=== PATIENT | male | born 1975 | race Caucasian/White ===

== ENCOUNTER 2016-04-15 17:08 | Emergency (ER) | payer MEDICARE, MEDICAID ==
[2016-04-15 20:01] VITALS: BP 124/90
--- NOTE | 2016-04-15 20:44 | UC ---
Ear Complaint HPI - HPI Summary HPI Summary: 41 yo male with left otalgia and URI x 1-2 days no f/c - History of Current Complaint Chief Complaint: UCGeneralIllness Stated Complaint: ST Time Seen by Provider: 04/15/16 19:38 Hx Obtained From: Patient Onset/Duration: Gradual Onset, Lasting Days Severity Initially: Moderate Severity Currently: Moderate Pain Intensity: 4 Pain Scale Used: 0-10 Numeric Associated Signs/Symptoms: Positive: URI Symptoms - Allergies/Home Medications Allergies/Adverse Reactions: Allergies Allergy/AdvReac Type Severity Reaction Status Date / Time No Known Allergies Allergy Verified 04/15/16 20:01 Home Medications: Home Medications Amitriptyline TAB* [Elavil TAB*] 25 mg PO BEDTIME 04/15/16 [History Confirmed ] Dicyclomine CAP* [Bentyl CAP*] 20 mg PO TID PRN 04/15/16 [History Confirmed 10/22] Folic Acid TAB* [Folvite TAB*] 1 mg PO DAILY 04/15/16 [History Confirmed ] Lisinopril [Zestril 10 MG-] 10 mg PO DAILY 04/15/16 [History Confirmed 04/15/16] Loperamide CAP* [Imodium CAP*] 1 tab TID 04/15/16 [History Confirmed 04/15/16] Mesalamine CAP (NF) [Pentasa(NF)] 4 tab PO QID 04/15/16 [History Confirmed 04/15] Methotrexate* 125 mg .SEE ORDER WEEKLY 04/15/16 [History Confirmed 04/15/16] Multiple Vitamins W/ Minerals [Multivitamin Adults] 1 tab PO BID 04/15/16 [ History Confirmed 04/15/16] Potassium Chlor TAB* [Klor Con ER TAB*] 20 meq PO BID 04/15/16 [History Confirmed 04/15/16] PMH/Surg Hx/FS Hx/Imm Hx Previously Healthy: Yes - crohns Cardiovascular History Of: Reports: Cardiac Disorders - PVCs, Hypertension - Surgical History Surgical History: Yes Surgery Procedure, Year, and Place: HERNIA; Cardiac ablation for PVCs 2012. BOWEL RESECTION. ANAL FISTULA REPAIR - Family History Known Family History: Positive: Hypertension, Diabetes - Social History Alcohol Use: None Substance Use Type: None Smoking Status (MU): Heavy Every Day Tobacco Smoker Type: Cigarettes Amount Used/How Often: 1 ppd Length of Time of Smoking/Using Tobacco: 15 years - Immunization History Most Recent Influenza Vaccination: none Review of Systems Constitutional: Negative Skin: Negative Eyes: Negative ENT: Ear Ache, Nasal Discharge Respiratory: Cough Cardiovascular: Negative Gastrointestinal: Negative Genitourinary: Negative Motor: Negative Neurovascular: Negative Musculoskeletal: Negative Neurological: Negative Psychological: Negative All Other Systems Reviewed And Are Negative: Yes Physical Exam Triage Information Reviewed: Yes Appearance: Well-Appearing, No Pain Distress, Well-Nourished Vital Signs: Initial Vital Signs Temp 98.5 F 04/15/16 19:58 Pulse 96 04/15/16 19:58 Resp 18 04/15/16 19:58 BP 124/90 04/15/16 19:58 Pulse Ox 100 04/15/16 19:58 Vital Signs Reviewed: Yes Eyes: Positive: Conjunctiva Clear ENT: Positive: Hearing grossly normal, Nasal congestion, TM bulging - left, TM red - left. Negative: Tonsillar swelling, Tonsillar exudate, Trismus, Muffled/ hoarse voice Dental: Negative: Gross Decay/Caries @, Dental Fracture @ Neck: Positive: Supple, Nontender, No Lymphadenopathy Respiratory: Positive: Lungs clear, Normal breath sounds, No respiratory distress, No accessory muscle use Cardiovascular: Positive: RRR, No Murmur Neurological: Positive: Alert Psychological Exam: Normal Skin Exam: Normal Ear Complaint Course/Dx - Differential Dx/Diagnosis Provider Diagnoses: left otitis media. viral URI Discharge - Discharge Plan Condition: Stable Disposition: HOME Prescriptions: Azithromycin TAB* [Zithromax TAB*] 250 mg PO DAILY #6 tab Patient Education Materials: Otitis Media (ED) Referrals: Wade Deleon PA [Primary Care Provider] - 5 Days (if not better)
== END 2016-04-15 20:47 | disposition home or self-care (01) ==
LOC: UCCORT 17:08
DX: H66.92 Otitis media, unspecified, left ear (principal); J06.9 Acute upper respiratory infection, unspecified; I49.3 Ventricular premature depolarization; I10 Essential (primary) hypertension; F17.210 Nicotine dependence, cigarettes, uncomplicated
CPT/HCPCS: 99212; G0463

== ENCOUNTER 2016-08-26 12:18 | Emergency (ER) | payer MEDICARE, MEDICAID ==
[2016-08-26 12:46] VITALS: BP 152/97
[2016-08-26] MEDS ORDERED: SUMAtriptan SQ* 6 MG/0.5 ML VIAL SUBCUT ONE (13:13)
[2016-08-26] MEDS ORDERED: Metoclopramide TAB* 10 MG PO ONE (13:13)
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
== END 2016-08-26 14:09 | disposition home or self-care (01) ==
LOC: UCCORT 12:18
DX: F41.9 Anxiety disorder, unspecified (principal); F51.02 Adjustment insomnia; G47.9 Sleep disorder, unspecified; K50.90 Crohn's disease, unspecified, without complications; F17.210 Nicotine dependence, cigarettes, uncomplicated
CPT/HCPCS: 96372; 99212; A9270-GY; G0463; J3030

== ENCOUNTER 2017-08-21 20:31 | Emergency (ER) | payer MEDICAID, MEDICARE ==
[2017-08-21] MEDS ORDERED: Metoclopramide IV* 5 MG/ML 2 ML VIAL IV ONE (22:11)
[2017-08-21] MEDS ORDERED: Famotidine IV* 10 MG/ML 2 ML (20 mg) IV ONE (22:11)
[2017-08-21] MEDS ORDERED: NS 0.9% 1000 ML* 1,000 ML IV ONE (22:11)
[2017-08-21] MEDS ORDERED: Morphine INJ* 10 MG/ML 1 ML CARPUJECT IV ONE (22:11)
[2017-08-21 22:37] LABS: ABS Basophils 0.1 10^3/ul (0-0.2); ABS Eosinophils 0.1 10^3/ul (0-0.6); ABS Lymphocytes 2.5 10^3/ul (1.0-4.8); ABS Monocytes 0.9 10^3/ul (0-0.8); ABS Neutrophils 6.5 10^3/ul (1.5-7.7); ABS Nucleated RBC 0 10^3/ul; Eosinophil % 0.7 % (0-6); Hematocrit 38 % (42-52); Hemoglobin 12.5 g/dl (14.0-18.0); Mean Corpuscular HGB Conc 33 g/dl (31-36); Mean Corpuscular Hemoglobin 29 pg (27-31); Mean Corpuscular Volume 88 fL (80-94); Mean Platelet Volume 7.1 um3 (7.4-10.4); Nucleated Red Blood Cells % 0.1; Platelet Count 372 10^3/ul (150-450); Red Blood Count 4.27 10^6/ul (4.00-5.40); Red Cell Distribution Width 16 % (10.5-15); White Blood Count 10.1 10^3/ul (3.5-10.8)
[2017-08-21 22:53] LABS: EGFR Non-African American 110.2 (>60)
[2017-08-21] MEDS ORDERED: Morphine VIAL* 4 MG/ML VIAL (1 ml vial) IV ONE (23:00)
[2017-08-22] MEDS ORDERED: Lidocaine 2% VISCOUS* 15 ML UDC PO ONE (00:06)
[2017-08-22] MEDS ORDERED: Ketorolac INJ* 30 MG/ML 1 ML VIAL IV ONE (00:06)
[2017-08-22] MEDS ORDERED: Al Hydrox/Mg Hydrox/Simet LIQ* 30 ML UDC PO ONE (00:06)
[2017-08-22] MEDS ORDERED: Iohexol 300* (CONTRAST) 10 ML SDV IV ONE (00:54)
[2017-08-22] MEDS ORDERED: HYDROmorphone INJ* 2 MG/ML CARPUJECT SYRINGE IV SLOW PU ONE (01:06)
[2017-08-22 02:16] VITALS: BP 103/62
--- NOTE | 2017-08-22 07:46 | RAD ---
CLINICAL HISTORY: abdominal pain , COMPARISON: June 14, 2008 TECHNIQUE: Multiple contiguous axial CT scans were obtained of the abdomen and pelvis after the administration of intravenous contrast. Coronal and sagittal multiplanar reformations are submitted for review. Oral contrast was not administered. FINDINGS: LUNG BASES: The lung bases are clear. LIVER: The liver is normal in shape, size, contour, and attenuation. BILE DUCTS: There is no intrahepatic or extrahepatic biliary dilatation. GALLBLADDER: The gallbladder is not visualized. Surgical clips are noted in the gallbladder fossa. PANCREAS: The pancreas is normal, without mass or ductal dilatation. SPLEEN: There is small low-attenuation lesion in the spleen suggestive of a cyst versus hemangioma. UPPER GI TRACT: Evaluation of the gastrointestinal tract is limited by incomplete gastric distention. The upper GI tract is unremarkable. SMALL BOWEL AND MESENTERY: The small bowel is normal in contour, course, and caliber. There is no obstruction or dilatation. COLON: The colon is normal in contour, course, caliber. There is no pericolonic inflammatory change. ADRENALS: Normal bilaterally. KIDNEYS: The kidneys are normal in shape, size, contour, and axis. There is no hydronephrosis or nephrolithiasis. BLADDER: The bladder is smooth in contour. PELVIC ORGANS: The prostate gland is normal. The seminal vesicles are symmetric. AORTA: The aorta is normal. IVC: Unremarkable LYMPH NODES: There is no lymphadenopathy by size criteria. ABDOMINAL WALL: There is no evidence for abdominal wall hernia. BONES AND SOFT TISSUES: There are mild diffuse degenerative changes. OTHER: None IMPRESSION: LOW SUSPICION LOW-ATTENUATION LESION OF THE SPLEEN SUGGESTIVE OF CYSTS VERSUS HEMANGIOMA, THOUGH THIS HAS DEVELOPED COMPARED TO THE 2009 EXAMINATION. CONSIDERATION OF FURTHER EVALUATION WITH ULTRASOUND OF THE SPLEEN IN THE NONACUTE SETTING.
--- NOTE | 2017-09-07 11:19 | ED ---
Marisol Cano Gabriel, scribed for Hemal Elizondo MD on 08/21/17 at 2212 . Abdominal Pain/Male - HPI Summary HPI Summary: This patient is a 42 year old M presenting to [facility] with a chief complaint of epigastric and LLQ pain that began 3 days ago that is getting worse. The patient rates the sharp pain 8/10 in severity and states it radiates into his back. Symptoms aggravated by eating. Patient reports n/v/d. 4 episodes of emesis. Patient denies CP. Hx cholecystectomy, pancreatitis, and chrons. - History of Current Complaint Chief Complaint: EDAbdPain Stated Complaint: ABD PAIN Time Seen by Provider: 08/21/17 21:56 Hx Obtained From: Patient Onset/Duration: Lasting Days, Still Present Timing: Constant Severity Initially: Mild Severity Currently: Severe Pain Intensity: 8 Pain Scale Used: 0-10 Numeric Location: Discrete At: LLQ, Epigastric Radiates: Yes Radiates to: Back Character: Sharp Aggravating Factor(s): Food Associated Signs And Symptoms: Positive: Nausea, Vomiting, Diarrhea - Allergies/Home Medications Allergies/Adverse Reactions: Allergies Allergy/AdvReac Type Severity Reaction Status Date / Time No Known Allergies Allergy Verified 08/26/17 06:43 Home Medications: Home Medications Nortriptyline CAP* [Pamelor CAP*] 25 mg PO DAILY 08/21/17 [History Confirmed ] amLODIPine TAB* [Norvasc 5 mg TAB*] 5 mg PO DAILY 08/21/17 [History Confirmed ] PMH/Surg Hx/FS Hx/Imm Hx Endocrine/Hematology History: Reports: Other Endocrine/Hematological Disorders - pancreatitis Cardiovascular History: Reports: Hx Hypertension GI History: Reports: Hx Crohn's Disease, Hx Ulcer - Surgical History Surgery Procedure, Year, and Place: HERNIA; Cardiac ablation for PVCs 2012. BOWEL RESECTION. ANAL FISTULA REPAIR Infectious Disease History: No Infectious Disease History: Reports: Hx Clostridium Difficile - 2011 Denies: History Other Infectious Disease, Traveled Outside the [place] in Last 30 Days - Family History Known Family History: Positive: Hypertension, Diabetes - Social History Alcohol Use: None Substance Use Type: Reports: None Smoking Status (MU): Heavy Every Day Tobacco Smoker Type: Cigarettes Amount Used/How Often: 1 ppd Length of Time of Smoking/Using Tobacco: 15 years Review of Systems Negative: Fever Positive: Abdominal Pain, Vomiting, Diarrhea, Nausea All Other Systems Reviewed And Are Negative: Yes Physical Exam - Summary Physical Exam Summary: Appearance: Well-appearing, no distress, Well-nourished Skin: Warm, color reflects adequate perfusion Head: Normal Head/Face inspection Eyes: Conjunctiva clear ENT: Normal inspection Neck: Supple, no nodes, no JVD. Respiratory: Lungs clear, Normal breath sounds, no respiratory distress Cardio: RRR, No murmur, pulses normal, brisk capillary refill Abdomen: soft, TTP in epigastrium, no guarding, no rebound Bowel sounds: normal Musculoskeletal: Strength Intact/ ROM intact. No calf tenderness. No edema. Neuro: Alert, muscle tone normal, facial symmetry, speech normal, sensory/motor intact Psychological: Normal Triage Information Reviewed: Yes Vital Signs On Initial Exam: Initial Vitals Temp Pulse Resp BP Pulse Ox 98.8 F 109 20 141/88 99 08/21/17 20:46 08/21/17 20:46 08/21/17 20:46 08/21/17 20:46 08/21/17 20:46 Vital Signs Reviewed: Yes Diagnostics - Vital Signs Vital Signs Temp Pulse Resp BP Pulse Ox 08/21/17 20:46 98.8 F 109 20 141/88 99 - Laboratory Lab Results: Lab Results 08/21/17 08/21/17 08/21/17 Range/Units 22:24 22:24 22:24 WBC 10.1 (3.5-10.8) 10^3/ul RBC 4.27 (4.00-5.40) 10^6/ul Hgb 12.5 L (14.0-18.0) g/dl Hct 38 L (42-52) % MCV 88 (80-94) fL MCH 29 (27-31) pg MCHC 33 (31-36) g/dl RDW 16 H (10.5-15) % Plt Count 372 (150-450) 10^3/ul MPV 7.1 L (7.4-10.4) um3 Neut % (Auto) 64.8 (38-83) % Lymph % (Auto) 25.0 (25-47) % [place] % (Auto) 8.9 H (0-7) % Eos % (Auto) 0.7 (0-6) % Baso % (Auto) 0.6 (0-2) % Absolute Neuts (auto) 6.5 (1.5-7.7) 10^3/ul Absolute Lymphs (auto) 2.5 (1.0-4.8) 10^3/ul Absolute Monos (auto) 0.9 H (0-0.8) 10^3/ul Absolute Eos (auto) 0.1 (0-0.6) 10^3/ul Absolute Basos (auto) 0.1 (0-0.2) 10^3/ul Absolute Nucleated RBC 0 10^3/ul Nucleated RBC % 0.1 Sodium 136 (135-145) mmol/L Potassium 4.0 (3.5-5.0) mmol/L Chloride 102 (101-111) mmol/L Carbon Dioxide 25 (22-32) mmol/L Anion Gap 9 (2-11) mmol/L BUN 9 (6-24) mg/dL Creatinine 0.78 (0.67-1.17) mg/dL Est GFR ( Amer) 141.8 (>60) Est GFR (Non-Af Amer) 110.2 (>60) BUN/Creatinine Ratio 11.5 (8-20) Glucose 96 (70-100) mg/dL Lactic Acid 1.1 (0.5-2.0) mmol/L Calcium 9.2 (8.6-10.3) mg/dL Total Bilirubin 0.20 (0.2-1.0) mg/dL AST 22 (13-39) U/L ALT 29 (7-52) U/L Alkaline Phosphatase 60 (34-104) U/L Total Protein 7.1 (6.4-8.9) g/dL Albumin 4.2 (3.2-5.2) g/dL Globulin 2.9 (2-4) g/dL Albumin/Globulin Ratio 1.4 (1-3) Lipase 23 (11.0-82.0) U/L Result Diagrams: 08/21/17 22:24 08/21/17 22:24 Lab Statement: Any lab studies that have been ordered have been reviewed, and results considered in the medical decision making process. - CT CT ABD/Pelvis CT Interpretation Completed By: Radiologist - No definite acute pathology. New small splenic hypodensity is questionably a cyst, can be further evaluated with non-emergent US ED physician has reviewed this radiology report. Re-Evaluation - Re-Evaluation First Eval Re-Evaluation Time: 01:00 Change: Unchanged Comment: Pt continues to have upper abdominal discomfort. will give second dose IV analgesia and antacids. Will obtain CT abd/pelv. Second Eval Re-Evaluation Time: 02:03 Change: Improved Comment: Pt pain improved with IV analgesia. Pt resting comfortably in bed. Pt tolerating po. Pt symptoms most consistent with gastritis. PLan for symptomatic tx with GI f/u. Abdominal Pain Fem Course/Dx - Diagnoses Differential Diagnosis/HQI/PQRI: Bowel Obstruction, Constipation, Diverticulitis , Gall Bladder Disease, Ischemic Bowel, Pancreatitis, Peptic Ulcer Disease Provider Diagnoses: Abdominal pain Discharge - Sign-Out/Discharge Documenting (check all that apply): Patient Departure - Discharge Plan Condition: Improved Disposition: HOME Prescriptions: traMADol TAB* [Ultram*] 50 mg PO Q6HR PRN #10 tab MDD 200 mg PRN Reason: Pain Patient Education Materials: Acute Abdominal Pain (ED) Referrals: Wade Deleon PA [Primary Care Provider] - 2 Days - Billing Disposition and Condition Condition: IMPROVED Disposition: Home The documentation as recorded by the Marisol avila Gabriel accurately reflects the service I personally performed and the decisions made by , Hemal Elizondo MD.
== END 2017-08-22 02:15 | disposition home or self-care (01) ==
LOC: ED 20:31
DX: R10.32 Left lower quadrant pain (principal); R19.7 Diarrhea, unspecified; F17.210 Nicotine dependence, cigarettes, uncomplicated; R11.2 Nausea with vomiting, unspecified
CPT/HCPCS: 36415; 74177; 80053; 83605; 83690; 85025; 96361; 96374; 96375; 99283; A9270-GY; J1170; J1885; J2270; J2765; Q9967

== ENCOUNTER 2017-08-23 01:36 | Emergency (ER) | payer MEDICARE ==
[2017-08-23] MEDS ORDERED: Promethazine TAB* 25 MG ONE (02:48)
[2017-08-23] MEDS ORDERED: Promethazine TAB* 25 MG PO ONE (02:55)
[2017-08-23] MEDS ORDERED: methylPREDNISolone 125 MG* 2 ML VIAL IV ONE (03:03)
[2017-08-23] MEDS ORDERED: NS 0.9% 1000 ML* 1,000 ML IV ONE (03:03)
[2017-08-23] MEDS ORDERED: HYDROmorphone INJ* 2 MG/ML CARPUJECT SYRINGE IV SLOW PU ONE (03:04)
[2017-08-23] MEDS ORDERED: metroNIDAZOLE TAB* 250 MG PO ONE (03:04)
[2017-08-23] MEDS ORDERED: Ciprofloxacin TAB* 500 MG PO ONE (03:04)
[2017-08-23 03:30] LABS: ABS Basophils 0.1 10^3/ul (0-0.2); ABS Eosinophils 0 10^3/ul (0-0.6); ABS Lymphocytes 2.5 10^3/ul (1.0-4.8); ABS Monocytes 0.7 10^3/ul (0-0.8); ABS Neutrophils 6.1 10^3/ul (1.5-7.7); ABS Nucleated RBC 0 10^3/ul; Eosinophil % 0.5 % (0-6); Hematocrit 35 % (42-52); Lymphocyte % 26.5 % (25-47); Mean Corpuscular HGB Conc 34 g/dl (31-36); Mean Corpuscular Hemoglobin 30 pg (27-31); Mean Corpuscular Volume 88 fL (80-94); Mean Platelet Volume 6.8 um3 (7.4-10.4); Nucleated Red Blood Cells % 0; Platelet Count 386 10^3/ul (150-450); Red Blood Count 3.99 10^6/ul (4.00-5.40); Red Cell Distribution Width 16 % (10.5-15); White Blood Count 9.5 10^3/ul (3.5-10.8)
[2017-08-23 03:43] LABS: EGFR Non-African American 108.6 (>60)
[2017-08-23 04:38] VITALS: BP 144/78
--- NOTE | 2017-08-23 05:09 | ED ---
Marisol Cano Gabriel, scribed for Zafar Alejo MD on 08/23/17 at 0208 . Abdominal Pain/Male - HPI Summary HPI Summary: This patient is a 42 year old M [facility] c/o ABD pain in the LLQ that continues to increase. The ABD pain began 08-18-17 he has chrons and has attempted to do a liquid diet but it has not worked. The patient rates the waxing and waning pain 8/10 in severity. Patient reports diarrhea, chills, and vomiting. Patient denies blood in the stool. Pt stated that he was here last night for abd. Pt sent home with tramadol and pt states that it feels like it is getting worse - History of Current Complaint Chief Complaint: EDAbdPain Stated Complaint: ABD PAIN Hx Obtained From: Patient Onset/Duration: Still Present Timing: Constant Severity Initially: Moderate Severity Currently: Moderate Pain Intensity: 8 Pain Scale Used: 0-10 Numeric Location: Discrete At: LLQ Radiates: No Associated Signs And Symptoms: Positive: Vomiting, Diarrhea - Allergies/Home Medications Allergies/Adverse Reactions: Allergies Allergy/AdvReac Type Severity Reaction Status Date / Time No Known Allergies Allergy Verified 08/23/17 01:45 Home Medications: Home Medications Varenicline Tartrate [Chantix] 1 mg PO BID 08/23/17 [History Confirmed 08/23/17] PMH/Surg Hx/FS Hx/Imm Hx Endocrine/Hematology History: Denies: Hx Diabetes Cardiovascular History: Reports: Hx Hypertension Denies: Hx Auto Implanted Cardiovert Defib, Hx Cardiac Arrest GI History: Reports: Hx Crohn's Disease, Hx Ulcer History: Denies: Hx Renal Disease Psychiatric History: Denies: Hx Panic Disorder, Hx Post Traumatic Stress Disorder - Surgical History Surgery Procedure, Year, and Place: HERNIA; Cardiac ablation for PVCs 2012. BOWEL RESECTION. ANAL FISTULA REPAIR Infectious Disease History: No Infectious Disease History: Reports: Hx Clostridium Difficile - 2011 Denies: History Other Infectious Disease, Traveled Outside the [place] in Last 30 Days - Family History Known Family History: Positive: Hypertension, Diabetes - Social History Alcohol Use: None Substance Use Type: Reports: None Smoking Status (MU): Heavy Every Day Tobacco Smoker Type: Cigarettes Amount Used/How Often: 1 ppd Length of Time of Smoking/Using Tobacco: 15 years Review of Systems Positive: Chills Gastrointestinal: Negative - blood in the stool Positive: Abdominal Pain, Vomiting, Nausea All Other Systems Reviewed And Are Negative: Yes Physical Exam - Summary Physical Exam Summary: Appearance: Well appearing, no pain distress Skin: warm, dry, reflects adequate perfusion Head/face: normal Eyes: EOMI, RADHA ENT: normal Neck: supple, non-tender Respiratory: CTA, breath sounds present Cardiovascular: RRR, pulses symmetrical Abdomen: mild LUQ tenderness, soft Bowel Sounds: increased Musculoskeletal: normal, strength/ROM intact Neuro: normal, sensory motor intact, A&Ox3 Triage Information Reviewed: Yes Vital Signs On Initial Exam: Initial Vitals Temp Pulse Resp BP Pulse Ox 98.1 F 93 20 147/102 100 08/23/17 01:42 08/23/17 01:42 08/23/17 01:42 08/23/17 01:42 08/23/17 01:42 Vital Signs Reviewed: Yes Diagnostics - Vital Signs Vital Signs Temp Pulse Resp BP Pulse Ox 08/23/17 01:42 98.1 F 93 20 147/102 100 - Laboratory Lab Results: Lab Results 08/23/17 08/23/17 Range/Units 03:13 03:13 WBC 9.5 (3.5-10.8) 10^3/ul RBC 3.99 L (4.00-5.40) 10^6/ul Hgb 12.0 L (14.0-18.0) g/dl Hct 35 L (42-52) % MCV 88 (80-94) fL MCH 30 (27-31) pg MCHC 34 (31-36) g/dl RDW 16 H (10.5-15) % Plt Count 386 (150-450) 10^3/ul MPV 6.8 L (7.4-10.4) um3 Neut % (Auto) 64.6 (38-83) % Lymph % (Auto) 26.5 (25-47) % Sutton % (Auto) 7.8 H (0-7) % Eos % (Auto) 0.5 (0-6) % Baso % (Auto) 0.6 (0-2) % Absolute Neuts (auto) 6.1 (1.5-7.7) 10^3/ul Absolute Lymphs (auto) 2.5 (1.0-4.8) 10^3/ul Absolute Monos (auto) 0.7 (0-0.8) 10^3/ul Absolute Eos (auto) 0 (0-0.6) 10^3/ul Absolute Basos (auto) 0.1 (0-0.2) 10^3/ul Absolute Nucleated RBC 0 10^3/ul Nucleated RBC % 0 Sodium 137 (135-145) mmol/L Potassium 3.7 (3.5-5.0) mmol/L Chloride 102 (101-111) mmol/L Carbon Dioxide 27 (22-32) mmol/L Anion Gap 8 (2-11) mmol/L BUN 9 (6-24) mg/dL Creatinine 0.79 (0.67-1.17) mg/dL Est GFR ( Amer) 139.7 (>60) Est GFR (Non-Af Amer) 108.6 (>60) BUN/Creatinine Ratio 11.4 (8-20) Glucose 102 H (70-100) mg/dL Calcium 9.4 (8.6-10.3) mg/dL Total Bilirubin 0.30 (0.2-1.0) mg/dL AST 19 (13-39) U/L ALT 27 (7-52) U/L Alkaline Phosphatase 58 (34-104) U/L Total Protein 6.8 (6.4-8.9) g/dL Albumin 4.1 (3.2-5.2) g/dL Globulin 2.7 (2-4) g/dL Albumin/Globulin Ratio 1.5 (1-3) Lipase 23 (11.0-82.0) U/L Result Diagrams: 08/23/17 03:13 08/23/17 03:13 Lab Statement: Any lab studies that have been ordered have been reviewed, and results considered in the medical decision making process. Abdominal Pain Fem Course/Dx - Course Course Of Treatment: Patient with history of Crohn's disease without any significant inflammatory markers or fever. Diarrhea without blood in the stool. On no medications for this. 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 Started patient on Cipro, Flagyl and gave dose of IV steroid. Patient has not followed up with GI in some time. Recommended local GI to him. Will continue Cipro, Flagyl, budesonide, Pentasa. Return precautions provided. - Diagnoses Differential Diagnosis/HQI/PQRI: Other - Crohn's flare, gastroenteritis, opiate withdrawal Provider Diagnoses: Exacerbation of Crohn's disease Discharge - Sign-Out/Discharge Documenting (check all that apply): Discharge/Admit/Transfer - Discharge Plan Condition: Improved Disposition: HOME Prescriptions: Budesonide [Entocort EC] 9 mg PO QAM #90 capdr...er Ciprofloxacin HCl [Cipro] 500 mg PO BID #14 tablet Mesalamine [Delzicol] 800 mg PO TID #90 cap.drtab. metroNIDAZOLE [Flagyl 500 MG TAB] 500 mg PO TID #21 tab Promethazine TAB* [Phenergan Tab*] 25 mg PO Q6H PRN #20 tab PRN Reason: Nausea Patient Education Materials: Crohn Disease (ED) Referrals: Wade Deleon PA [Primary Care Provider] - Lux Healy MD [Medical Doctor] - Additional Instructions: Call and the morning to follow-up with your doctor and also ux ui designer. Medications have been prescribed here pharmacy. [place] diet as tolerated. Continue antidiarrheals as needed. Avoid anti-inflammatory medications. Return with fever, increased pain, worse or other concerns. - Billing Disposition and Condition Condition: IMPROVED Disposition: Home The documentation as recorded by the Marisol avila Gabriel accurately reflects the service I personally performed and the decisions made by , Zafar Alejo MD.
== END 2017-08-23 04:36 | disposition home or self-care (01) ==
LOC: ED 01:36
DX: K50.90 Crohn's disease, unspecified, without complications (principal); I10 Essential (primary) hypertension; F17.210 Nicotine dependence, cigarettes, uncomplicated
CPT/HCPCS: 36415; 80053; 83690; 85025; 96360; 96374; 96375; 99283; A9270-GY; J1170; J2930

== ENCOUNTER 2017-08-26 06:36 | Emergency (ER) | payer MEDICARE ==
[2017-08-26] MEDS ORDERED: NS 0.9% 1000 ML* 1,000 ML IV ONE (07:28)
[2017-08-26] MEDS ORDERED: Ketorolac INJ* 30 MG/ML 1 ML VIAL IV ONE (07:28)
[2017-08-26] MEDS ORDERED: Metoclopramide IV* 5 MG/ML 2 ML VIAL IV ONE (07:28)
[2017-08-26 08:04] LABS: ABS Basophils 0.1 10^3/ul (0-0.2); ABS Eosinophils 0 10^3/ul (0-0.6); ABS Lymphocytes 3.7 10^3/ul (1.0-4.8); ABS Monocytes 1.1 10^3/ul (0-0.8); ABS Neutrophils 10.2 10^3/ul (1.5-7.7); ABS Nucleated RBC 0 10^3/ul; Eosinophil % 0.2 % (0-6); Hematocrit 38 % (42-52); Hemoglobin 12.9 g/dl (14.0-18.0); Lymphocyte % 24.3 % (25-47); Mean Corpuscular HGB Conc 34 g/dl (31-36); Mean Corpuscular Hemoglobin 30 pg (27-31); Mean Corpuscular Volume 87 fL (80-94); Mean Platelet Volume 6.8 um3 (7.4-10.4); Nucleated Red Blood Cells % 0; Platelet Count 420 10^3/ul (150-450); Red Blood Count 4.34 10^6/ul (4.00-5.40); Red Cell Distribution Width 16 % (10.5-15); White Blood Count 15.1 10^3/ul (3.5-10.8)
[2017-08-26] MEDS ORDERED: fentaNYL* 50 MCG/ML 2 ML VIAL (100 MCG VIAL) IV ONE (08:09)
[2017-08-26] MEDS ORDERED: Promethazine INJ(RESTRICTED)* 25 MG/ML 1 ML VIAL IV ONE (08:09)
[2017-08-26 08:30] LABS: EGFR Non-African American 88.9 (>60)
[2017-08-26] MEDS ORDERED: oxyCODONE/Acetamin 5/325 MG* TAB PO ONE (11:10)
[2017-08-26] MEDS ORDERED: Ondansetron ODT TAB* 4 MG SL ONE ×2 (11:15→14:28)
[2017-08-26 14:01] LABS: Urine Appearance Clear; Urine Blood 3+ (Negative); Urine Color Straw; Urine Ketones Negative (Negative); Urine Protein Negative (Negative); Urine Red Blood Cell Absent (Absent); Urine Urobilinogen Negative (Negative); Urine White Blood Cell Absent (Absent)
[2017-08-26] MEDS ORDERED: Ketorolac INJ* 30 MG/ML 1 ML VIAL IV PUSH ONE (14:28)
[2017-08-26 14:50] VITALS: BP 125/68
--- NOTE | 2017-08-26 18:50 | ED ---
Marisol Cano Gabriel, scribed for Jarod Garcia MD on 08/26/17 at 0729 . Abdominal Pain/Male - HPI Summary HPI Summary: This patient is a 42 year old M presenting to [facility] with a chief complaint of ABD pain due to a Crohns flare up. The pt states the pain is similar to previous flair up but slightly worse. The patient rates the pain 8/10 in severity. Patient reports constant green diarrhea, nausea, and vomiting. States the vomit occasionally has black flecks in it. This is the patients third visit to the emergency room since 08-21-17 and states the pain has been getting worse. Pt is not on any medication for his chrons due to adverse reactions due to do previous medications. Still on flagyl and entocort for 3-4 days. Hx anal fistula, polyps, and C-diff. No colon resection - History of Current Complaint Chief Complaint: EDAbdPain Stated Complaint: ABD PAIN, VOMITING Time Seen by Provider: 08/26/17 07:17 Hx Obtained From: Patient Onset/Duration: Lasting Days - 10, Still Present Timing: Constant Severity Initially: Moderate Severity Currently: Severe Pain Intensity: 8 Pain Scale Used: 0-10 Numeric Location: Diffuse Radiates: No Associated Signs And Symptoms: Positive: Nausea, Vomiting, Diarrhea - Allergies/Home Medications Allergies/Adverse Reactions: Allergies Allergy/AdvReac Type Severity Reaction Status Date / Time No Known Allergies Allergy Verified 08/26/17 06:43 Home Medications: Home Medications Budesonide CAP(NF) 9 mg PO QAM 08/26/17 [History Confirmed 08/26/17] Ciprofloxacin TAB* [Cipro 500 MG TAB*] 500 mg PO BID 08/26/17 [History Confirmed 08/26/17] Escitalopram (NF) [Lexapro 20 mg (NF)] 20 mg PO DAILY 08/26/17 [History Confirmed 08/26/17] Lisinopril TAB* [Prinivil TAB*] 30 mg PO DAILY 08/26/17 [History Confirmed 08/26] Mesalamine CAP (NF) [Delzicol (NF)] 800 mg PO TID 08/26/17 [History Confirmed ] Omeprazole CAP* [Prilosec CAP* 20 MG] 40 mg PO BID 08/26/17 [History Confirmed 08/26/17] Varenicline (NF) [Chantix 1 MG TAB (NF)] 1 mg PO BID 08/26/17 [History Confirmed 08/26/17] metroNIDAZOLE TAB* [Flagyl 250 mg TAB*] 500 mg PO TID 08/26/17 [History Confirmed 08/26/17] PMH/Surg Hx/FS Hx/Imm Hx Endocrine/Hematology History: Denies: Hx Diabetes Cardiovascular History: Reports: Hx Hypertension Denies: Hx Auto Implanted Cardiovert Defib, Hx Cardiac Arrest GI History: Reports: Hx Crohn's Disease, Hx Ulcer History: Denies: Hx Renal Disease Psychiatric History: Denies: Hx Panic Disorder, Hx Post Traumatic Stress Disorder - Surgical History Surgery Procedure, Year, and Place: HERNIA; Cardiac ablation for PVCs 2012. BOWEL RESECTION. ANAL FISTULA REPAIR Infectious Disease History: No Infectious Disease History: Reports: Hx Clostridium Difficile - 2011 Denies: History Other Infectious Disease, Traveled Outside the [place] in Last 30 Days - Family History Known Family History: Positive: Hypertension, Diabetes - Social History Alcohol Use: None Substance Use Type: Reports: None Smoking Status (MU): Heavy Every Day Tobacco Smoker Type: Cigarettes Amount Used/How Often: 1 ppd Length of Time of Smoking/Using Tobacco: 15 years Review of Systems Negative: Fever Positive: Abdominal Pain, Vomiting, Diarrhea, Nausea All Other Systems Reviewed And Are Negative: Yes Physical Exam - Summary Physical Exam Summary: GENERAL: Patient is a well developed and nourished M who is lying comfortable in the stretcher. Patient is not in any acute respiratory distress. HEAD AND FACE: Normocephalic EYES: PERRLA, EOMI x 2. EARS: Hearing grossly intact. MOUTH: Oropharynx within normal limits. NECK: Supple, trachea is midline, no adenopathy, no JVD, no carotid bruit. CHEST: Symmetric, no tenderness at palpation LUNGS: Clear to auscultation bilaterally. No wheezing or crackles. CVS: Regular rate and rhythm, S1 and S2 present, no murmurs or gallops appreciated. ABDOMEN: Soft. Diffusely TTP that is worse on the left. No rebound EXTREMITIES: Full ROM in all major joints, no edema, no cyanosis or clubbing. NEURO: Alert and oriented x 3. No acute neurological deficits. Speech is normal and follows commands. SKIN: Dry and warm Triage Information Reviewed: Yes Vital Signs On Initial Exam: Initial Vitals Temp Pulse Resp BP Pulse Ox 97.8 F 108 16 138/102 99 08/26/17 06:39 08/26/17 06:39 08/26/17 06:39 08/26/17 06:39 08/26/17 06:39 Vital Signs Reviewed: Yes Diagnostics - Vital Signs Vital Signs Temp Pulse Resp BP Pulse Ox 08/26/17 06:39 97.8 F 108 16 138/102 99 - Laboratory Lab Results: Lab Results 08/26/17 08/26/17 08/26/17 Range/Units 07:55 07:55 07:55 WBC 15.1 H (3.5-10.8) 10^3/ul RBC 4.34 (4.00-5.40) 10^6/ul Hgb 12.9 L (14.0-18.0) g/dl Hct 38 L (42-52) % MCV 87 (80-94) fL MCH 30 (27-31) pg MCHC 34 (31-36) g/dl RDW 16 H (10.5-15) % Plt Count 420 (150-450) 10^3/ul MPV 6.8 L (7.4-10.4) um3 Neut % (Auto) 67.6 (38-83) % Lymph % (Auto) 24.3 L (25-47) % [place] % (Auto) 7.3 H (0-7) % Eos % (Auto) 0.2 (0-6) % Baso % (Auto) 0.6 (0-2) % Absolute Neuts (auto) 10.2 H (1.5-7.7) 10^3/ul Absolute Lymphs (auto) 3.7 (1.0-4.8) 10^3/ul Absolute Monos (auto) 1.1 H (0-0.8) 10^3/ul Absolute Eos (auto) 0 (0-0.6) 10^3/ul Absolute Basos (auto) 0.1 (0-0.2) 10^3/ul Absolute Nucleated RBC 0 10^3/ul Nucleated RBC % 0 Sodium 137 (135-145) mmol/L Potassium 3.5 (3.5-5.0) mmol/L Chloride 103 (101-111) mmol/L Carbon Dioxide 24 (22-32) mmol/L Anion Gap 10 (2-11) mmol/L BUN 14 (6-24) mg/dL Creatinine 0.94 (0.67-1.17) mg/dL Est GFR ( Amer) 107.6 (>60) Est GFR (Non-Af Amer) 88.9 (>60) BUN/Creatinine Ratio 14.9 (8-20) Glucose 82 (70-100) mg/dL Lactic Acid 0.7 (0.5-2.0) mmol/L Calcium 9.4 (8.6-10.3) mg/dL Magnesium 2.2 (1.9-2.7) mg/dL Total Bilirubin 0.30 (0.2-1.0) mg/dL AST 19 (13-39) U/L ALT 30 (7-52) U/L Alkaline Phosphatase 62 (34-104) U/L C-Reactive Protein 10.79 H (<8.01) mg/L Total Protein 7.0 (6.4-8.9) g/dL Albumin 4.2 (3.2-5.2) g/dL Globulin 2.8 (2-4) g/dL Albumin/Globulin Ratio 1.5 (1-3) Lipase 30 (11.0-82.0) U/L Urine Color Urine Appearance Urine pH (5-9) Ur Specific [place] (1.010-1.030) Urine Protein (Negative) Urine Ketones (Negative) Urine Blood (Negative) Urine Nitrate (Negative) Urine Bilirubin (Negative) Urine Urobilinogen (Negative) Ur Leukocyte Esterase (Negative) Urine WBC (Auto) (Absent) Urine RBC (Auto) (Absent) Urine Bacteria (Absent) Urine Glucose (Negative) 08/26/17 Range/Units 13:15 WBC (3.5-10.8) 10^3/ul RBC (4.00-5.40) 10^6/ul Hgb (14.0-18.0) g/dl Hct (42-52) % MCV (80-94) fL MCH (27-31) pg MCHC (31-36) g/dl RDW (10.5-15) % Plt Count (150-450) 10^3/ul MPV (7.4-10.4) um3 Neut % (Auto) (38-83) % Lymph % (Auto) (25-47) % [place] % (Auto) (0-7) % Eos % (Auto) (0-6) % Baso % (Auto) (0-2) % Absolute Neuts (auto) (1.5-7.7) 10^3/ul Absolute Lymphs (auto) (1.0-4.8) 10^3/ul Absolute Monos (auto) (0-0.8) 10^3/ul Absolute Eos (auto) (0-0.6) 10^3/ul Absolute Basos (auto) (0-0.2) 10^3/ul Absolute Nucleated RBC 10^3/ul Nucleated RBC % Sodium (135-145) mmol/L Potassium (3.5-5.0) mmol/L Chloride (101-111) mmol/L Carbon Dioxide (22-32) mmol/L Anion Gap (2-11) mmol/L BUN (6-24) mg/dL Creatinine (0.67-1.17) mg/dL Est GFR ( Amer) (>60) Est GFR (Non-Af Amer) (>60) BUN/Creatinine Ratio (8-20) Glucose (70-100) mg/dL Lactic Acid (0.5-2.0) mmol/L Calcium (8.6-10.3) mg/dL Magnesium (1.9-2.7) mg/dL Total Bilirubin (0.2-1.0) mg/dL AST (13-39) U/L ALT (7-52) U/L Alkaline Phosphatase (34-104) U/L C-Reactive Protein (<8.01) mg/L Total Protein (6.4-8.9) g/dL Albumin (3.2-5.2) g/dL Globulin (2-4) g/dL Albumin/Globulin Ratio (1-3) Lipase (11.0-82.0) U/L Urine Color Straw Urine Appearance Clear Urine pH 7.0 (5-9) Ur Specific [place] 1.000 L (1.010-1.030) Urine Protein Negative (Negative) Urine Ketones Negative (Negative) Urine Blood 3+ A (Negative) Urine Nitrate Negative (Negative) Urine Bilirubin Negative (Negative) Urine Urobilinogen Negative (Negative) Ur Leukocyte Esterase Negative (Negative) Urine WBC (Auto) Absent (Absent) Urine RBC (Auto) Absent (Absent) Urine Bacteria Absent (Absent) Urine Glucose Negative (Negative) Result Diagrams: 08/26/17 07:55 08/26/17 07:55 Lab Statement: Any lab studies that have been ordered have been reviewed, and results considered in the medical decision making process. Re-Evaluation - Re-Evaluation First Eval Re-Evaluation Time: 10:20 Change: Unchanged Comment: I discussed test results and discharge with the patient. He is requesting to be transferred and to speak to the fitness centre manager. Second Eval Re-Evaluation Time: 10:25 Change: Unchanged Comment: The pt is requesting to see another physician and does not want to sign out AMA. Third Eval Re-Evaluation Time: 09:45 Change: Unchanged Comment: I reviewed the patients CT ABD/Pelvis from 08-22-. Abdominal Pain Fem Course/Dx - Course Course Of Treatment: 42-year-old male with a history of Crohn's disease and was seen here 8 times within the past week for abdominal pain associated with nausea , vomiting, diarrhea. She reports that he was recently sent home on steroids, Cipro, Flagyl. I did review the CAT scan that was done 4 days ago which shows no acute etiology. Patient's blood work is unremarkable the exception of leukocytosis which is most likely induced by steroids. He was given IV fluids, antinausea and pain medicine and was told he needed to follow up with GI. She became upset and said he thinks he needs to be admitted. However, I informed patient don't see the need for admission as he has not had 1 episode of nausea, vomiting or diarrhea while being observed here in the emergency room as vital signs are stable. We were able to get the patient a follow-up appointment with the intensive clinic upstairs for today. Patient hemodynamically stable upon discharge - Diagnoses Provider Diagnoses: Chronic abdominal pain - Provider Notifications Discussed Care Of Patient With: Lux Healy Time Discussed With Above Provider: 10:55 Instructed by Provider To: Other - We discussed patient care with Dr. Belle office and they stated he has been released from their care. They will not see the patient again due to their history of care with him. Discharge - Sign-Out/Discharge Documenting (check all that apply): Discharge/Admit/Transfer - Discharge Plan Condition: Stable Disposition: HOME Patient Education Materials: Chronic Abdominal Pain (ED) Referrals: Care [facility] [Outside] Wade Deleon PA [Primary Care Provider] - Additional Instructions: RETURN TO THE EMERGENCY DEPARTMENT FOR CHANGING OR WORSENING SYMPTOMS - Billing Disposition and Condition Condition: STABLE Disposition: Home The documentation as recorded by the Marisol avila Gabriel accurately reflects the service I personally performed and the decisions made by me, Jarod Garcia MD.
== END 2017-08-26 14:59 | disposition home or self-care (01) ==
LOC: ED 06:36
DX: R10.9 Unspecified abdominal pain (principal); G89.29 Other chronic pain; R19.7 Diarrhea, unspecified; R11.2 Nausea with vomiting, unspecified; F17.210 Nicotine dependence, cigarettes, uncomplicated; K50.118 Crohn's disease of large intestine with other complication; F32.9 Major depressive disorder, single episode, unspecified; R31.29 Other microscopic hematuria; Z79.899 Other long term (current) drug therapy
CPT/HCPCS: 36415; 80053; 81003; 81015; 83605; 83690; 83735; 85025; 86140; 96365; 96375; 99284; A9270-GY; J1885; J2550; J2765; J3010

== ENCOUNTER 2018-09-21 12:58 | Emergency (ER) | payer MEDICARE ==
[2018-09-21 13:28] VITALS: BP 130/84
--- NOTE | 2018-09-21 13:37 | UC ---
UC General HPI - HPI Summary HPI Summary: per triage, For 2 weeks now pt's R foot has been painful, especially the great toe area, pain has been getting progressively worse. Pt cannot think of any particular incident where he would've hurt himself, no swelling or redness so patient is worried he may have gout. no fever, erythema or swelling. admits to being very active with nice weather and going back to work after disability from crohn's disease. - History of Current Complaint Chief Complaint: UCLowerExtremity Stated Complaint: RT FOOT PAIN Time Seen by Provider: 09/21/18 13:20 Hx Obtained From: Patient Pain Intensity: 7 Aggravating: pushing off on that foot. - Allergy/Home Medications Allergies/Adverse Reactions: Allergies Allergy/AdvReac Type Severity Reaction Status Date / Time No Known Allergies Allergy Verified 09/21/18 13:28 Home Medications: Home Medications Bupropion XL* [Wellbutrin XL *] 300 mg PO DAILY 09/21/18 [History Confirmed ] Ibuprofen 400 mg PO ONCE 09/21/18 [History Confirmed 09/21/18] Metoclopramide TAB* [Reglan TAB*] 1 tab PO DAILY PRN 09/21/18 [History Confirmed 09/21/18] Ondansetron [Ondansetron Odt] 1 tab PO DAILY PRN 09/21/18 [History Confirmed ] PMH/Surg Hx/FS Hx/Imm Hx - Additional Past Medical History Additional PMH: crohn's Cardiovascular History: Hypertension GI/ History: Gastroesophageal Reflux - Surgical History Surgical History: Yes Surgery Procedure, Year, and Place: HERNIA 2010. Cardiac ablation for PVCs 2012. ANAL FISTULA REPAIR - Family History Known Family History: Positive: Hypertension, Diabetes - Social History Lives: With Family Alcohol Use: None Substance Use Type: None Smoking Status (MU): Heavy Every Day Tobacco Smoker Type: eCigarettes Amount Used/How Often: 1/4 ppd - pt uses a juul instead of cigarettes Length of Time of Smoking/Using Tobacco: 15 years Household Exposure Type: Cigarettes - Immunization History Most Recent Influenza Vaccination: none Review of Systems All Other Systems Reviewed And Are Negative: No Constitutional: Negative: Fever, Chills Skin: Negative: Rash, Bruising Musculoskeletal: Negative: Decreased ROM, Edema Neurological: Negative: Weakness, Numbness Physical Exam Triage Information Reviewed: Yes Appearance: Well-Appearing Vital Signs: Initial Vital Signs Temp 99.5 F 09/21/18 13:21 Pulse 88 09/21/18 13:21 Resp 16 09/21/18 13:21 BP 130/84 09/21/18 13:21 Pulse Ox 98 09/21/18 13:21 Vital Signs Reviewed: Yes Respiratory: Positive: No respiratory distress Cardiovascular: Positive: RRR Musculoskeletal: Positive: Other: - RLE: ankle non tender. foot without redness , swelling or deformity. he has point tenderness to base of 1st toe on plantar surface. foot has gross s/v/m function. Neurological: Positive: Alert Psychological: Positive: Age Appropriate Behavior Skin Exam: Normal Diagnostics - Radiology No standard instances Radiology Interpretation Completed By: Radiologist - IMPRESSION: NO EVIDENCE FOR FRACTURE. Course/Dx - Differential Dx - Multi-Symptom Differential Diagnoses: Other - no concern for infection or gout. possible sesamoiditis vs tendon or ligament pathology or bruising. - Diagnoses Provider Diagnosis: Foot pain, right Discharge - Sign-Out/Discharge Documenting (check all that apply): Patient Departure All imaging exams completed and their final reports reviewed: Yes - Discharge Plan Condition: Stable Disposition: HOME Patient Education Materials: Metatarsalgia (DC) Referrals: Rip Hampton MD [Medical Doctor] - As Soon As Possible Additional Instructions: CONSIDER A FOOT PAD FOR THE BALL OF YOUR FOOT FROM ANY PHARMACY - Billing Disposition and Condition Condition: STABLE Disposition: Home
== END 2018-09-21 14:33 | disposition home or self-care (01) ==
LOC: UCCORT 12:58
DX: M79.671 Pain in right foot (principal); I10 Essential (primary) hypertension; F17.290 Nicotine dependence, other tobacco product, uncomplicated
CPT/HCPCS: 99212; G0463